=== PATIENT | female | born 1975 | race Hispanic/Latino ===

== ENCOUNTER 2018-06-11 09:11 | Emergency (ER) | payer OTHER ==
[2018-06-11 09:51] VITALS: BMI 33.4
[2018-06-11 09:57] VITALS: TEMP 98.2
[2018-06-11] MEDS ORDERED: DiphenhydrAMINE 50 mg/ml Inj IVP STA (10:14)
[2018-06-11] MEDS ORDERED: Sodium Chloride 0.9% 1,000 ML IV SCH (10:15)
--- NOTE | 2018-06-11 10:17 | ED PDOC ---
Arrival/HPI - General Chief Complaint: Headache Historian: Patient - History of Present Illness Narrative History of Present Illness (Text): 06/11/18 10:14 42 y/o female, pmh including chronic neck/back pain, penicillin allergy, c/o rt. sided headache x 3 days with no fall or trauma. Throbbing pain, unilateral on the right, no change in vision, no painful movement of the eye, no URI symptoms, no coughing, no fall or trauma. Pt. stated that she has chronic neck pain for over 1 year which has been radiating to the lt. upper extremity, no swelling or discoloration of the lt. upper extremity, no numbness or tingling but admits pain, no eye pressure or pain, no night sweat, no dizziness, no change in vision, no palpitation, no other medical or psychological complaints. Past Medical History - Provider Review Nursing Documentation Reviewed: Yes - Past History Past History: Non-Contributing - Infectious Disease Hx of Infectious Diseases: None - Tetanus Immunization Tetanus Immunization: Unknown - Cardiac Hx Cardiac Disorders: No - Pulmonary Hx Respiratory Disorders: Yes Hx Asthma: Yes - Neurological Hx Neurological Disorder: No - HEENT Hx HEENT Disorder: No - Renal Hx Renal Disorder: No - Endocrine/Metabolic Hx Endocrine Disorders: No - Hematological/Oncological Hx Blood Disorders: No - Integumentary Hx Dermatological Disorder: No - Musculoskeletal/Rheumatological Hx Musculoskeletal Disorders: No - Gastrointestinal Hx Gastrointestinal Disorders: No - Genitourinary/Gynecological Hx Genitourinary Disorders: No - Psychiatric Hx Psychophysiologic Disorder: No Hx Depression: No Hx Emotional Abuse: No Hx Physical Abuse: No Hx Substance Use: No - Surgical History Hx Cholecystectomy: Yes Hx Tubal Ligation: Yes Other/Comment: Fibroidectomy - Suicidal Assessment Feels Threatened In Home Enviroment: No Family/Social History - Physician Review Nursing Documentation Reviewed: Yes Family/Social History: Unknown Family HX Smoking Status: Never Smoked Hx Alcohol Use: No Hx Substance Use: No Allergies/Home Meds Allergies/Adverse Reactions: Allergies Penicillins Adverse Reaction (Verified 06/11/18 09:48) VOMITING Home Medications: Home Meds Medication Instructions Recorded Confirmed Azithromycin [Zithromax] 250 mg PO DAILY 06/11/18 06/11/18 Review of Systems - Review of Systems Constitutional: absent: Fatigue, Fevers Eyes: absent: Vision Changes ENT: absent: Hearing Changes Respiratory: absent: SOB, Cough Cardiovascular: absent: Chest Pain, Palpitations, Edema, Calf Pain Gastrointestinal: absent: Abdominal Pain, Nausea, Vomiting Genitourinary Female: absent: Dysuria, Frequency, Hematuria Musculoskeletal: Neck Pain. absent: Arthralgias, Back Pain, Joint Swelling, Myalgias Skin: absent: Rash, Pruritis, Skin Lesions Neurological: Headache. absent: Dizziness, Focal Weakness, Gait Changes, Speech Changes, Facial Droop, Disequilibrium, Seizure Psychiatric: absent: Anxiety, Depression, Suicidal Ideation Physical Exam Vital Signs Reviewed: Yes Vital Signs Temp Pulse Resp BP Pulse Ox 06/11/18 09:51 98.2 F 79 17 130/87 99 Temperature: Afebrile Blood Pressure: Normal Pulse: Regular Respiratory Rate: Normal Appearance: Positive for: Well-Appearing, Non-Toxic, Comfortable Pain Distress: Moderate Mental Status: Positive for: Alert and Oriented X 3 - Systems Exam Head: Present: Atraumatic, Normocephalic, Other (no temoral artery tenderness or swelling. ). No: Tenderness, Contusion, Swelling, Ecchymosis, Abrasion, Laceration Pupils: Present: PERRL Extroacular Muscles: Present: EOMI Conjunctiva: Present: Normal Ears: Present: NORMAL TM, Normal Canal. No: Erythema Mouth: Present: Moist Mucous Membranes Pharnyx: No: ERYTHEMA, EXUDATE, TONSILS ENLARGED Nose (External): Present: Atraumatic. No: Abrasion, Contusion, Laceration, Lesions Nose (Internal): Present: Normal Inspection. No: No Active Bleeding, Edematous, Rhinorrhea, Septal Deviation, Septal Hematoma, Epistaxis Neck: Present: Normal Range of Motion, Trachea Midline, Other (Cervical spine: No midline tenderness or step off, no paraspinal spinal tenderness, FROM without limitation, sensation intact, motor 5/5, no tremors. ). No: Meningeal Signs, MIDLINE TENDERNESS, Paraspinal Tenderness, Lymphadenopathy Respiratory/Chest: Present: Clear to Auscultation, Good Air Exchange. No: Respiratory Distress, Accessory Muscle Use, Wheezes, Decreased Breath Sounds, Rales, Retracting, Rhonchi, Tachypneic, Tender to Palpation Cardiovascular: Present: Regular Rate and Rhythm, Normal S1, S2. No: Murmurs Abdomen: No: Tenderness, Distention, Peritoneal Signs, Rebound, Guarding Back: Present: Normal Inspection. No: CVA Tenderness, Midline Tenderness, Paraspinal Tenderness, Pain with Leg Raise, Decubitus Ulcer Upper Extremity: Present: Normal Inspection, Normal ROM, NORMAL PULSES, Neurovascularly Intact, Capillary Refill < 2s. No: Cyanosis, Edema, Tenderness, Swelling, Deformity Lower Extremity: Present: Normal Inspection, NORMAL PULSES, Neurovascularly Intact. No: Edema, Tenderness, Swelling Neurological: Present: GCS=15, CN II-XII Intact, Speech Normal, Motor Func Grossly Intact, Normal Cerebellar Funct, Gait Normal, Memory Normal, Other (Bilateral upper and lower extremities: sensation intact, motor 5/5, FROM without limitation, no tremors. ) Skin: Present: Warm, Dry, Normal Color. No: Rashes Lymphatic: No: Cervical Adenopathy, Axillary Adenopathy Psychiatric: Present: Alert, Oriented x 3, Normal Insight, Normal Concentration Medical Decision Making ED Course and Treatment: 06/11/18 10:19 Sinusitis vs. ICH vs. Intracranial tumor vs. Disc herniation vs. DJD -labs -CT head/cervical -IV toradol/reglan/benadryl/valium -Observe and reassess 06/11/18 13:48 -Serum hcg is negative -CT head No acute findings -CT cervical No acute fracture and there is degenerative changes. -Rt. eye intraocular pressure 15. -Labs are non-significant -UA show no UTI -Pt. feels much better, request to be discharged home. -Discharge home with fioriocet, flexeril, motrin, bed rest, follow up with your own pmd and neurologist/orthopedic within 2 days, return to the ER for any new or worsening signs or symptoms. - RAD Interpretation Radiology Orders: 06/11/18 10:12 CERVICAL SPINE W/O CONTRAST [CT] Stat HEAD W/O CONTRAST [CT] Stat CT head: Date of service: 06/11/2018 PROCEDURE: CT HEAD WITHOUT CONTRAST. HISTORY: rt. sided headache x 3 days COMPARISON: None available. TECHNIQUE: Axial computed tomography images were obtained through the head/brain without intravenous contrast. Radiation dose: Total exam DLP = 1015.68 mGy-cm. This CT exam was performed using one or more of the following dose reduction techniques: Automated exposure control, adjustment of the mA and/or kV according to patient size, and/or use of iterative reconstruction technique. FINDINGS: HEMORRHAGE: No intracranial hemorrhage. BRAIN: No mass effect or edema. No atrophy or chronic microvascular ischemic changes. VENTRICLES: Unremarkable. No hydrocephalus. CALVARIUM: Unremarkable. PARANASAL SINUSES: Unremarkable as visualized. No significant inflammatory changes. MASTOID AIR CELLS: Unremarkable as visualized. No inflammatory changes. OTHER FINDINGS: None. IMPRESSION: No acute findings CT Cervical: Date of service: 06/11/2018 PROCEDURE: CT Cervical Spine without contrast HISTORY: neck and radiating to the LUE, chronic COMPARISON: None available. TECHNIQUE: Axial computed tomography images were obtained of the cervical spine without the use of intravenous contrast. Coronal and sagittal reformatted images were created and reviewed. Radiation dose: Total exam DLP = 519.3 mGy-cm. This CT exam was performed using one or more of the following dose reduction techniques: Automated exposure control, adjustment of the mA and/or kV according to patient size, and/or use of iterative reconstruction technique. FINDINGS: VERTEBRAE: No fracture. Normal alignment. No destructive bony lesion. DISCS/SPINAL CANAL/NEURAL FORAMINA: No significant central canal or neural foraminal stenosis. Mild disc degeneration PARASPINAL SOFT TISSUES: Unremarkable. OTHER FINDINGS: None. IMPRESSION: No acute fracture Finishing Inspector: Radiologist - Medication Orders Current Medication Orders: Diazepam (Valium) 5 mg PO ONCE ONE; Protocol Stop: 06/11/18 10:13 Sodium Chloride (Sodium Chloride 0.9%) 1,000 mls @ 100 mls/hr IV .Q10H NOAM Ketorolac Tromethamine (Toradol) 30 mg IVP STAT STA Stop: 06/11/18 10:13 Metoclopramide HCl (Reglan) 10 mg IVP STAT STA Stop: 06/11/18 10:13 - PA / [employer] SALESPERSON / Resident Statement MD/DO has reviewed & agrees with the documentation as recorded. Disposition/Present on Arrival - Present on Arrival Any Indicators Present on Arrival: No History of DVT/PE: No History of Uncontrolled Diabetes: No Urinary Catheter: No History of Decub. Ulcer: No History Surgical Site Infection Following: None - Disposition Have Diagnosis and Disposition been Completed?: Yes Diagnosis: Cervical radiculopathy, Headache Disposition: HOME/ ROUTINE Disposition Time: 13:50 Patient Plan: Discharge Condition: IMPROVED Additional Instructions: -Discharge home with fioriocet, flexeril, motrin, bed rest, follow up with your own pmd and neurologist/orthopedic/neurosurgeon within 2 days, return to the ER for any new or worsening signs or symptoms. Prescriptions: Acetaminophen/Butalbital/Caf [Fioricet] 1 tab PO QID PRN #30 tab PRN Reason: Other Cyclobenzaprine [Cyclobenzaprine HCl] 10 mg PO TID PRN #21 tab PRN Reason: Other Ibuprofen [Motrin] 600 mg PO QID PRN #30 tab PRN Reason: Other Referrals: [facility] [place] [Outside] - Follow up with primary Jack Zimmer MD [Staff Provider] - Follow up with primary Scar Zuñiga MD [Staff Provider] - Follow up with primary Denis Holley MD [Staff Provider] - Follow up with primary Forms: [employer] (Korean), WORK NOTE
[2018-06-11 10:39] LABS: BASO # 0.02 K/mm3 (0.0-2.0); BASO % 0.3 % (0.0-3.0); EOS # 0.3 (0.0-0.7); EOS % 4.7 % (1.5-5.0); HEMOGLOBIN 12.8 g/dL (12.0-16.0); LYMPH # 2.9 (1.2-3.4); LYMPH % 45.2 % (22.0-35.0); MEAN CELL VOLUME 94.5 fl (80.0-105.0); MEAN CORPUSCULAR HEMOGLOBIN 31.9 pg (25.0-35.0); MEAN CORPUSCULAR HGB CONC 33.8 g/dl (31.0-37.0); MEAN PLATELET VOLUME 10.2 fl (7.0-11.0); MONO # 0.2 (0.1-0.6); MONO % 3.6 % (1.0-6.0); RBC 4.01 10^6/uL (3.5-6.1); RED CELL DISTRIBUTION WIDTH 12.4 % (11.5-14.5); WHITE BLOOD COUNT 6.4 10^3/uL (4.5-11.0)
[2018-06-11 10:58] LABS: ALB/GLOB RATIO 1.3 (1.1-1.8); ALT/SGPT 27 U/L (7-56); AST/SGOT 27 U/L (14-36); BLOOD UREA NITROGEN 11 mg/dL (7-21); CALCIUM 8.8 mg/dL (8.4-10.5); GFR NON-AFRICAN AMERICAN > 60
[2018-06-11 12:23] VITALS: RESP 18
--- NOTE | 2018-06-11 12:31 | CT ---
Date of service: 06/11/2018 PROCEDURE: CT HEAD WITHOUT CONTRAST. HISTORY: rt. sided headache x 3 days COMPARISON: None available. TECHNIQUE: Axial computed tomography images were obtained through the head/brain without intravenous contrast. Radiation dose: Total exam DLP = 1015.68 mGy-cm. This CT exam was performed using one or more of the following dose reduction techniques: Automated exposure control, adjustment of the mA and/or kV according to patient size, and/or use of iterative reconstruction technique. FINDINGS: HEMORRHAGE: No intracranial hemorrhage. BRAIN: No mass effect or edema. No atrophy or chronic microvascular ischemic changes. VENTRICLES: Unremarkable. No hydrocephalus. CALVARIUM: Unremarkable. PARANASAL SINUSES: Unremarkable as visualized. No significant inflammatory changes. MASTOID AIR CELLS: Unremarkable as visualized. No inflammatory changes. OTHER FINDINGS: None. IMPRESSION: No acute findings
--- NOTE | 2018-06-11 12:35 | CT ---
Date of service: 06/11/2018 PROCEDURE: CT Cervical Spine without contrast HISTORY: neck and radiating to the LUE, chronic COMPARISON: None available. TECHNIQUE: Axial computed tomography images were obtained of the cervical spine without the use of intravenous contrast. Coronal and sagittal reformatted images were created and reviewed. Radiation dose: Total exam DLP = 519.3 mGy-cm. This CT exam was performed using one or more of the following dose reduction techniques: Automated exposure control, adjustment of the mA and/or kV according to patient size, and/or use of iterative reconstruction technique. FINDINGS: VERTEBRAE: No fracture. Normal alignment. No destructive bony lesion. DISCS/SPINAL CANAL/NEURAL FORAMINA: No significant central canal or neural foraminal stenosis. Mild disc degeneration PARASPINAL SOFT TISSUES: Unremarkable. OTHER FINDINGS: None. IMPRESSION: No acute fracture
[2018-06-11 13:25] LABS: PH,URINE 8.5 (4.7-8.0); URINE BILIRUBIN NEGATIVE (NEGATIVE); URINE BLOOD NEGATIVE (NEGATIVE); URINE GLUCOSE (UA) NEGATIVE (NEGATIVE); URINE LEUKOCYTE ESTERASE NEGATIVE Leu/uL (NEGATIVE); URINE PROTEIN NEGATIVE mg/dL (<30 mg/dL); URINE UROBILINOGEN 0.2 E.U./dL (<1 E.U./dL)
[2018-06-11 13:29] LABS: URINE APPEARANCE CLEAR (CLEAR); URINE COLOR YELLOW (YELLOW)
[2018-06-11 13:57] VITALS: BP 120/70; PULSE 76; O2SAT 99
== END 2018-06-11 14:28 | disposition home or self-care (01) ==
LOC: ED 09:11
DX: M54.12 Radiculopathy, cervical region (principal); R51 Headache
CPT/HCPCS: 70450; 72125; 80053; 81003; 83735; 84702; 85025; 96374; 96375; 99285; J1200; J1885; J2765; J7030